=== PATIENT | male | born 1955 | race Caucasian/White ===

== ENCOUNTER 2022-06-26 08:30 | Outpatient (CLI) | payer MEDICARE, MEDICAID, SELFPAY | END 2022-06-26 08:31 | disposition home or self-care (01) | PROVIDERS: PCP Family Medicine; Referring Provider Family Medicine; Visit Provider Family Medicine | DX: E11.9 Type 2 diabetes mellitus without complications (principal); E78.5 Hyperlipidemia, unspecified | CPT/HCPCS: 80053; 80061; 82043; 82570 ==

== ENCOUNTER 2022-10-30 09:45 | Outpatient (CLI) | payer MEDICARE, MEDICAID, SELFPAY | END 2022-10-30 09:46 | disposition home or self-care (01) | LOC: NFLDREF 11-01 12:27 | PROVIDERS: PCP Family Medicine; Referring Provider Family Medicine; Visit Provider Family Medicine | DX: E11.69 Type 2 diabetes mellitus with other specified complication (principal); E11.9 Type 2 diabetes mellitus without complications; E66.9 Obesity, unspecified; I10 Essential (primary) hypertension; I82.409 Acute embolism and thrombosis of unspecified deep veins of unspecified lower extremity; N17.9 Acute kidney failure, unspecified; N18.30 Chronic kidney disease, stage 3 unspecified; N40.1 Benign prostatic hyperplasia with lower urinary tract symptoms; R35.1 Nocturia; Z51.81 Encounter for therapeutic drug level monitoring; Z79.01 Long term (current) use of anticoagulants | CPT/HCPCS: 80053; 80061; 84153 ==

== ENCOUNTER 2022-11-01 10:39 | Outpatient (CLI) | payer MEDICARE, MEDICAID, SELFPAY | END 2022-11-01 10:40 | disposition home or self-care (01) | LOC: NFLDREF 11-03 08:27 | PROVIDERS: PCP Family Medicine; Referring Provider Family Medicine; Visit Provider Family Medicine | DX: E66.9 Obesity, unspecified (principal); E11.69 Type 2 diabetes mellitus with other specified complication; N18.30 Chronic kidney disease, stage 3 unspecified; Z51.81 Encounter for therapeutic drug level monitoring; Z79.01 Long term (current) use of anticoagulants; E11.9 Type 2 diabetes mellitus without complications; N40.1 Benign prostatic hyperplasia with lower urinary tract symptoms; R35.1 Nocturia; N17.9 Acute kidney failure, unspecified; I82.409 Acute embolism and thrombosis of unspecified deep veins of unspecified lower extremity; I10 Essential (primary) hypertension; E11.29 Type 2 diabetes mellitus with other diabetic kidney complication; R80.9 Proteinuria, unspecified; E78.5 Hyperlipidemia, unspecified; I26.99 Other pulmonary embolism without acute cor pulmonale | CPT/HCPCS: 82570; 84156 ==

== ENCOUNTER 2023-02-24 08:39 | Outpatient (CLI) | payer MEDICARE, SELFPAY | END 2023-02-24 08:40 | disposition home or self-care (01) | LOC: LKVREF 08:43 | PROVIDERS: PCP Family Medicine; Visit Provider Family Medicine | DX: E11.29 Type 2 diabetes mellitus with other diabetic kidney complication (principal); N18.30 Chronic kidney disease, stage 3 unspecified; R80.9 Proteinuria, unspecified | CPT/HCPCS: 80053 ==

== ENCOUNTER 2023-03-24 08:50 | Outpatient (CLI) | payer MEDICARE, SELFPAY | END 2023-03-24 08:51 | disposition home or self-care (01) | LOC: NFLDREF 03-27 18:28 | PROVIDERS: PCP Family Medicine; Referring Provider Family Medicine; Visit Provider Family Medicine | DX: Z86.718 Personal history of other venous thrombosis and embolism (principal); Z51.81 Encounter for therapeutic drug level monitoring; Z79.01 Long term (current) use of anticoagulants | CPT/HCPCS: 85610 ==

== ENCOUNTER 2023-04-21 08:52 | Outpatient (CLI) | payer MEDICARE, SELFPAY | END 2023-04-21 08:53 | disposition home or self-care (01) | LOC: NFLDREF 04-22 06:18 | PROVIDERS: PCP Family Medicine; Referring Provider Family Medicine; Visit Provider Family Medicine | DX: I26.99 Other pulmonary embolism without acute cor pulmonale (principal); Z51.81 Encounter for therapeutic drug level monitoring; Z79.01 Long term (current) use of anticoagulants | CPT/HCPCS: 85610 ==

== ENCOUNTER 2023-04-28 08:49 | Outpatient (REF) | payer MEDICARE, SELFPAY | END 2023-04-28 08:50 | disposition home or self-care (01) | LOC: NFLDREF 08:49 | PROVIDERS: PCP Family Medicine; Referring Provider Family Medicine; Visit Provider Family Medicine | DX: I82.401 Acute embolism and thrombosis of unspecified deep veins of right lower extremity (principal); Z51.81 Encounter for therapeutic drug level monitoring; Z79.01 Long term (current) use of anticoagulants | CPT/HCPCS: 85610 ==

== ENCOUNTER 2023-06-23 08:40 | Outpatient (CLI) | payer MEDICARE, SELFPAY | END 2023-06-23 08:41 | disposition home or self-care (01) | LOC: NFLDREF 07-02 12:35 | PROVIDERS: PCP Family Medicine; Referring Provider Family Medicine; Visit Provider Family Medicine | DX: E11.21 Type 2 diabetes mellitus with diabetic nephropathy (principal); E11.40 Type 2 diabetes mellitus with diabetic neuropathy, unspecified; Z79.01 Long term (current) use of anticoagulants; E11.29 Type 2 diabetes mellitus with other diabetic kidney complication; R80.9 Proteinuria, unspecified; N40.1 Benign prostatic hyperplasia with lower urinary tract symptoms; R35.1 Nocturia; N18.30 Chronic kidney disease, stage 3 unspecified; I10 Essential (primary) hypertension; E78.00 Pure hypercholesterolemia, unspecified | CPT/HCPCS: 82043; 82570; 85610 ==

== ENCOUNTER 2024-02-25 08:41 | Outpatient (CLI) | payer MEDICARE, SELFPAY | END 2024-02-25 08:42 | disposition home or self-care (01) | PROVIDERS: PCP Family Medicine; Visit Provider Family Medicine | DX: N40.1 Benign prostatic hyperplasia with lower urinary tract symptoms (principal); I10 Essential (primary) hypertension; E11.21 Type 2 diabetes mellitus with diabetic nephropathy; Z12.5 Encounter for screening for malignant neoplasm of prostate | CPT/HCPCS: 80053; 82043; 82570; G0103 ==

== ENCOUNTER 2024-05-24 10:20 | Outpatient (CLI) | payer MEDICARE, OTHER, SELFPAY | END 2024-05-24 10:21 | disposition home or self-care (01) | PROVIDERS: PCP Family Medicine; Referring Provider Family Medicine; Visit Provider Family Medicine | DX: Z51.81 Encounter for therapeutic drug level monitoring (principal); Z79.01 Long term (current) use of anticoagulants | CPT/HCPCS: 85610 ==

== ENCOUNTER 2024-07-05 10:08 | Outpatient (CLI) | payer MEDICARE, OTHER, SELFPAY | END 2024-07-05 10:09 | disposition home or self-care (01) | LOC: LKVREF 10:09 | PROVIDERS: PCP Family Medicine; Visit Provider Family Medicine | DX: E11.22 Type 2 diabetes mellitus with diabetic chronic kidney disease (principal); E11.29 Type 2 diabetes mellitus with other diabetic kidney complication; I12.9 Hypertensive chronic kidney disease with stage 1 through stage 4 chronic kidney disease, or unspecified chronic kidney disease; N18.30 Chronic kidney disease, stage 3 unspecified; R80.9 Proteinuria, unspecified; Z86.711 Personal history of pulmonary embolism; Z79.01 Long term (current) use of anticoagulants | CPT/HCPCS: 80053; 80061; 85610 ==

== ENCOUNTER 2024-08-08 07:40 | Outpatient (CLI) | payer MEDICARE, OTHER, SELFPAY ==
[2024-08-08] MEDS: PERFLUTREN LIPID MICROSPHERES 2 ML VIAL IVP (09:07)
== END 2024-08-08 07:41 | disposition home or self-care (01) ==
LOC: RAD 07:41
PROVIDERS: PCP Family Medicine; Visit Provider Family Medicine
DX: R01.1 Cardiac murmur, unspecified (principal); I35.1 Nonrheumatic aortic (valve) insufficiency; I34.0 Nonrheumatic mitral (valve) insufficiency; I07.1 Rheumatic tricuspid insufficiency
CPT/HCPCS: 93306; Q9957